=== PATIENT | male | born 1985 | race Caucasian/White ===

== ENCOUNTER 2016-10-12 09:45 | Emergency (ER) | payer SELFPAY ==
[2016-10-12] MEDS ORDERED: Meclizine HCl 25 MG TAB ONE (12:08)
[2016-10-12] MEDS ORDERED: ONDANSETRON ODT 4 MG TAB ONE (12:08)
== END 2016-10-12 13:18 | disposition home or self-care (01) ==
LOC: ER 09:45
DX: R42 Dizziness and giddiness (principal); J20.9 Acute bronchitis, unspecified
CPT/HCPCS: 36415; 80053; 85025